=== PATIENT | male | born 1985 | race Caucasian/White ===

== ENCOUNTER 2024-03-29 12:33 | Emergency (ER) | payer OTHER, SELFPAY ==
[2024-03-29 12:41] VITALS: BP 124/82
--- NOTE | 2024-03-29 14:25 | ED.GENMED ---
History of Present Illness
General
Chief Complaint: Male Genito-Urinary Symptoms
Source: patient
Exam Limitations: none
Time Seen by Provider: 03/29/24 14:17
Nursing documentation reviewed up to this point in time: agreed with
History of Present Illness
History of Present Illness:
38-year-old male presents with right testicular pain since 11 AM when he bent over to crop picker a small piece of wood at home. He states initially the pain was 8/10, he took ibuprofen 600 mg at 1130 and now pain is 6/10. He denies abdominal pain.
He denies difficulty urinating.
Past History
Past History
ED Past Medical History: None and Psychiatric (Takes bupropion)
ED Past Surgical History: Tonsilectomy
Social History
Tobacco: Former smoker
Alcohol: None
Personal:
Living: with family
Employment: Employed
Review of Systems
Review of Systems
Allergies reviewed?: Yes
All Other Systems: ROS reviewed and negative except as documented in HPI and ROS
Constitutional: Denies fever
: Reports other (Right testicular pain); Denies dysuria, frequency, difficulty voiding, urgency, bleeding or discharge
Skin: Reports no symptoms
Phy Exam
Physical Exam
Physical Exam:
GENERAL: No acute distress. A&Ox3.
CONSTITUTIONAL: Afebrile.
RESPIRATORY: Regular respirations, nonlabored, lungs clear.
CARDIOVASCULAR: Regular rate and rhythm, no murmurs, no rubs.
GI: Soft, nontender, normal BS
: External genitalia appear normal, no asymmetry of the testicles, no swelling, no redness or warmth. Right testicle tender to palpation.
MUSCULOSKELETAL: Moves with ease. Well perfused.
SKIN: Warm, dry, pink
PSYCH: Normal mood and affect. Well kept, interactive and appropriate
NEUROLOGIC: Awake, alert and oriented. No focal neurological deficits
Course
Orders/Labs/Results
Orders:
Orders
03/29/24 12:45
US Scrotum Urgent
Comment:
Reason For Exam: R scrotum pain
03/29/24 14:36
Urinalysis Reflex To Culture Urgent
Date Specimen was Collected: 03/29/24
Time Specimen was Collected: 14:34
Vital Signs
Initial and Last Documented VS:
Initial Vital Signs
Temp Pulse Resp BP Pulse Ox
98 F 70 18 124/82 96
03/29/24 12:41 03/29/24 12:41 03/29/24 12:41 03/29/24 12:41 03/29/24 12:41
Last Documented Vital Signs
Temp Pulse Resp BP Pulse Ox
98 F 70 18 124/82 96
03/29/24 12:41 03/29/24 12:41 03/29/24 12:41 03/29/24 12:41 03/29/24 12:41
MDM/Problems Addressed
Differential Diagnosis Includes:
Epididymitis, testicular torsion, UTI
MDM/Problems Addressed:
38-year-old male presents with right testicular pain since 11 AM when he bent over to crop picker a small piece of wood at home. He states initially the pain was 8/10, he took ibuprofen 600 mg at 1130 and now pain is 6/10. He denies abdominal pain.
He denies difficulty urinating.
US Scrotum: Radiology report read: IMPRESSION:
4 mm benign-appearing calcification in the posterior aspect of the right testicle
Small right hydrocele
Nothing serious, [facility]
*Critical Care Note
Total Time (30-74mins, 75-104mins- exclusive of procedures): Not Applicable
ED Attending Note
-
Portions of this chart may have been created with voice recognition software.� Occasional wrong word or��sound alike� substitutions may have occurred due to the inherent limitations of voice recognition software.
Discharge Plan
Departure
Patient Disposition: Home (Routine Discharge)
Date of Disposition: 03/29/24
Time of Disposition: 16:08
Patient with high blood pressure during this ER visit?: No
Condition: Good
Discharge Problem:
Pain in scrotum or testicle
Instructions: Hydrocele/Varicocele (DC)
Referrals:
Herbert Miller MD [Family Provider] - As needed
Activity Restrictions/Additional Instructions:
As we discussed, your ultrasound shows you have a small hydrocele, a small non worrisome calcification in the scrotum
Ibuprofen as needed for pain.
See your doctor for recheck in 2 weeks if not 100% better by then
Interventions
Interventions:
*Risk Screen - Suicide Last Done: 03/29/24 16:29
*General Assessment Last Done: 03/29/24 16:29
*Neglect/Abuse Screening Last Done: 03/29/24 16:29
ED- Fall Risk Assessment Last Done: 03/29/24 16:29
*ED COVID-19 Vaccine History Last Done: 03/29/24 16:29
*Nursing Disposition Last Done: 03/29/24 16:29
ED-Male Genitourinary Assessment Last Done: 03/29/24 14:38
Discharge Date and Time
Discharge Date/Time: 03/29/24 16:31
Print Language: ITALIAN
[2024-03-29 15:11] LABS: Urine Albumin Negative (Neg - Trace); Urine Bilirubin Negative (Negative); Urine Character Very Cloudy (Clear); Urine Color Yellow; Urine Glucose Negative (Negative); Urine Ketone Negative (Negative); Urine Leukocyte Negative (Negative); Urine Nitrite Negative (Negative); Urine Occult Blood Negative (Negative); Urine Specific Gravity 1.015 (<1.030); Urine Urobilinogen Negative (Neg - 1+)
== END 2024-03-29 16:31 | disposition home or self-care (01) ==
LOC: EMR 12:33
PROVIDERS: Registered Nurse; EMERGENCY PHYSICIAN Emergency Medicine; FAMILY PHYSICIAN Internal Medicine
DX: N50.82 Scrotal pain (principal); N50.811 Right testicular pain; R11.0 Nausea; N43.3 Hydrocele, unspecified; Z87.891 Personal history of nicotine dependence; Z88.8 Allergy status to other drugs, medicaments and biological substances
CPT/HCPCS: 99284; 76870; 81003; 93976